=== PATIENT | female | born 1975 | race Caucasian/White ===

== ENCOUNTER 2021-07-08 20:55 | Emergency (ER) | payer OTHER ==
[2021-07-08] MEDS ORDERED: CYCLOBENZAPRINE10 MG PO (22:19)
[2021-07-08] MEDS ORDERED: NAPROXEN500 MG PO (22:19)
== END 2021-07-08 23:02 | disposition home or self-care (01) ==
LOC: FER 20:55
DX: M79.18 Myalgia, other site (principal); R05.9 Cough, unspecified
CPT/HCPCS: 71045; J1885